=== PATIENT | male | born 1930 | race Caucasian/White ===

== ENCOUNTER 2018-09-03 21:52 | Emergency (ER) | payer OTHER ==
[2018-09-03] MEDS ORDERED: ONDANSETRON 4 MG/2 ML VIAL ONE (23:15)
[2018-09-03] MEDS ORDERED: MORPHINE 4 MG/ML SYR ONE (23:25)
--- NOTE | 2018-09-03 23:28 | ER ---
Nurse's Notes [facility] Name: Julian Plaza Age: 87 yrs Sex: Male : 1930 Arrival Date: 09/03/2018 Time: 22:00 Bed 4 Private MD: Diagnosis: Fractures distal right radius and ulna with displacements. Contusion head. S/P Fall Presentation: 09/03 22:01 Presenting complaint: EMS states: Walking with his cane and lost footing fell onto ea carpeted floor, hit face and right arm. Pt complaining of pain to face and deformity noted to right forearm. Denied LOC. Abrasion to face. Pt is currently on blood thinners. Transition of care: patient was not received from another setting of care. Onset of symptoms was September 03, 2018. Risk Assessment: Do you want to hurt yourself or someone else? Patient reports no desire to harm self or others. Initial Sepsis Screen: Does the patient meet any 2 criteria? No. Patient's initial sepsis screen is negative. Does the patient have a suspected source of infection? No. Patient's initial sepsis screen is negative. Care prior to arrival: 30 mg of Toradol given via 18 G to RAC. Splint to right Forearm. BGL 132. 22:01 Method Of Arrival: EMS: [facility] ea 22:01 Acuity: KYLE 3 ea 22:01 Mechanism of Injury: Fall from standing position. Trauma event details: Injury occurred ea in the [facility], Injury occurred: at home. Injury occurred: September 03, 2018 Injury occurred at: 21:10. Trauma Activation: Alert Physician: ED Physician; Name: ; Notified At: 22:00; Arrived At: 22:00 Physician: General Surgeon; Name: ; Notified At: 22:00; Arrived At: Physician: Radiology; Name: ; Notified At: 22:00; Arrived At: 22:05 Physician: Respiratory; Name: ; Notified At: 22:00; Arrived At: Physician: Lab; Name: ; Notified At: 22:00; Arrived At: Historical: - Allergies: 22:33 Sulfa (Sulfonamide Antibiotics); ea - Home Meds: 22:33 Metanx (algal oil) 3 mg-35 mg-2 mg -90.314 mg oral cap 2 capsul daily [Active]; Lmefol ea Yd-[id number]-algal 6 mg-600 mg- 2 mg-90.314 mg oral tab 2 cap daily [Active]; gabapentin 100 mg oral cap 1 caps 3 times per day for Neuropathic Pain [Active]; clopidogrel 75 mg oral tab 1 tab once daily [Active]; allopurinol 100 mg Oral tab 1 tab once daily [Active]; simvastatin 20 mg Oral tab 1 tab once daily [Active]; metoprolol tartrate 50 mg Oral tab 1 tab once daily [Active]; losartan 100 mg oral tab 1 tab once daily [Active]; - PMHx: 22:33 Hypertension; neuropathy; TIA; ea - PSHx: 22:33 Joint replacement; Tonsillectomy; Appendectomy; ea - Immunization history:: Adult Immunizations up to date, Last tetanus immunization: unknown. - Social history:: Smoking status: Patient/guardian denies using tobacco. - Ebola Screening: : No symptoms or risks identified at this time. Screenin:23 Abuse screen: Denies threats or abuse. Nutritional screening: No deficits noted. ea Tuberculosis screening: No symptoms or risk factors identified. Fall Risk IV access (20 points). Primary Survey: 22:08 A: Airway: patent. Breathing/Chest: Respiratory pattern: regular, Respiratory effort: ea spontaneous, unlabored, Breath sounds: clear, bilaterally. Chest inspection: symmetrical rise and fall of the chest. Circulation: Heart tones present. Skin color: pink, Skin temperature: warm. Disability Alert. 23:03 Reassessment Airway Airway Patent Breathing/Chest Respiratory pattern Regular ea Respiratory effort Spontaneous Unlabored Breath sounds Clear. Secondary Survey: 22:09 HEENT:. HEENT: Head Other abrasion and bruising noted to forehead. Gastrointestinal: ea Bowel sounds present in all quadrants. Musculoskeletal: Reports pain in right forearm Pain is 7 out of 10 on a pain scale. Injury Description: Head injury sustained to forehead is closed, did not have loss of consciousness, abrasion and bruising noted. Assessment: 22:12 General: Appears in no apparent distress. Behavior is calm, cooperative, appropriate ea for age. General: Behavior is. Pain: Complains of pain in right forearm and forehead Pain currently is 7 out of 10 on a pain scale. Quality of pain is described as aching, Pain began 30 min ago. Neuro: Level of Consciousness is awake, alert, obeys commands, Oriented to person, place, time, situation, Speech is normal, Facial symmetry appears normal, Pupils are PERRLA. Cardiovascular: Patient's skin is warm and dry. Respiratory: Airway is patent Respiratory effort is even, unlabored, Respiratory pattern is regular, symmetrical, Breath sounds are clear bilaterally. GI: No signs and/or symptoms were reported involving the gastrointestinal system. Bowel sounds present X 4 quads. Derm: Skin is pink, warm \T\ dry. Injury Description: Abrasion sustained to forehead is scabbed, was sustained 30-60 minutes ago. Bruise sustained to forehead is purple, was sustained 30-60 minutes ago. Deformity sustained to right wrist was sustained 30-60 minutes ago. 23:02 Reassessment: Patient and/or family updated on plan of care and expected duration. Pain ea level reassessed. Patient is alert, oriented x 3, equal unlabored respirations, skin warm/dry/pink. awaiting on CT results. 23:55 Reassessment: Patient and/or family updated on plan of care and expected duration. Pain ea level reassessed. Patient is alert, oriented x 3, equal unlabored respirations, skin warm/dry/pink. Discharge instructions given to patient and , both verbalized the understanding of instruction Patient states feeling better. Patient states symptoms have improved. Vital Signs: 22:05 BP 176 / 70; Pulse 63; Resp 18; Temp 98.6(O); Pulse Ox 98% on R/A; Weight 86.18 kg; ea Height 6 ft. 0 in. (182.88 cm); Pain 7/10; 23:03 BP 147 / 72; Pulse 57; Resp 16 S; Pulse Ox 99% ; Pain 5/10; ea 23:45 BP 150 / 68; Pulse 60; Resp 18; Temp 98(TE); Pulse Ox 97% on R/A; Pain 4/10; ea 22:05 Body Mass Index 25.77 (86.18 kg, 182.88 cm) ea [place] Coma Score: 22:01 Eye Response: spontaneous(4). Verbal Response: oriented(5). Motor Response: obeys ea commands(6). Total: 15. 23:45 Eye Response: spontaneous(4). Verbal Response: oriented(5). Motor Response: obeys ea commands(6). Total: 15. Trauma Score (Adult): 22:01 Eye Response: spontaneous(1); Verbal Response: oriented(1); Motor Response: obeys ea commands(2); Systolic BP: > 89 mm Hg(4); Respiratory Rate: 10 to 29 per min(4); Steve Score: 15; Trauma Score: 12 ED Course: 22:00 Patient arrived in ED. ea 22:01 Arm band placed on right wrist. Patient placed in an exam room, on a stretcher, on ea digital artist, on pulse oximetry. 22:05 Triage completed. ea 22:05 Patient maintains SpO2 saturation greater than 95% on room air. Thermoregulation: warm ea blanket given to patient. 22:07 Patient has correct armband on for positive identification. Bed in low position. Call ea light in reach. Side rails up X2. 22:09 Yony Reyes MD is Attending Physician. pkl 22:27 Wrist Right 3 View XRAY In Process Unspecified. EDMS 22:38 Gardenia Hunter, RN is Primary Nurse. ea 22:44 CT Head Brain wo Cont In Process Unspecified. EDMS 23:26 Shant Hughes MD is Referral Physician. pkl 23:26 Assist provider with reduction of right wrist using manipulation, Performed by Yony Reyes ea, MD Immobilized with Sugar Tong Splint Patient tolerated well. 23:34 X-ray completed. Portable x-ray completed in exam room. Patient tolerated procedure kw well. 23:35 Wrist Right 2 View In Process Unspecified. EDMS 23:50 IV discontinued, intact, bleeding controlled, No redness/swelling at site. Pressure ea dressing applied. Administered Medications: 23:20 Drug: morphine 2 mg Route: IVP; Site: left forearm; ea 23:37 Follow up: Response: No adverse reaction; Pain is decreased ea 23:20 Drug: Zofran 4 mg Route: IVP; Site: left forearm; ea 23:37 Follow up: Response: No adverse reaction; Marked relief of symptoms; Pain is decreased ea Intake: 23:36 PO: 0ml; Total: 0ml. ea Outcome: 23:28 Discharge ordered by . pkl 23:55 Discharged to home via wheelchair, with family. ea 23:55 Condition: improved 23:55 Discharge instructions given to patient, family, Instructed on discharge instructions, follow up and referral plans. medication usage, Demonstrated understanding of instructions, follow-up care, medications, Prescriptions given X 1. 23:55 Patient's length of stay was not longer than 2 hours. caroline 09/04 00:09 Patient left the ED. caroline Signatures: Dispatcher [employer] EDYony Cueto MD MD pkl Whitley, Kimberlee kw Antunez, Elena, RN RN caroline
--- NOTE | 2018-09-03 23:29 | EDPHYS ---
Physician Documentation [facility] Name: Julian Plaza Age: 87 yrs Sex: Male : 1930 Arrival Date: 09/03/2018 Time: 22:00 Bed 4 Private MD: ED Physician Yony Reyes HPI: 09/03 22:17 This 87 yrs old Male presents to ER via EMS with unknown complaint. pkl 22:17 Details of fall: The patient fell from an upright position. Onset: The symptoms/episode pkl began/occurred just prior to arrival, 1 hour(s) ago. Associated injuries: The patient sustained injury to the head, abrasion, right wrist, painful injury. Historical: - Allergies: 22:33 Sulfa (Sulfonamide Antibiotics); ea - Home Meds: 22:33 Metanx (algal oil) 3 mg-35 mg-2 mg -90.314 mg oral cap 2 capsul daily [Active]; Lmefol ea Zh-wkeojx-zwK33-algal 6 mg-600 mg- 2 mg-90.314 mg oral tab 2 cap daily [Active]; gabapentin 100 mg oral cap 1 caps 3 times per day for Neuropathic Pain [Active]; clopidogrel 75 mg oral tab 1 tab once daily [Active]; allopurinol 100 mg Oral tab 1 tab once daily [Active]; simvastatin 20 mg Oral tab 1 tab once daily [Active]; metoprolol tartrate 50 mg Oral tab 1 tab once daily [Active]; losartan 100 mg oral tab 1 tab once daily [Active]; - PMHx: 22:33 Hypertension; neuropathy; TIA; ea - PSHx: 22:33 Joint replacement; Tonsillectomy; Appendectomy; ea - Immunization history:: Adult Immunizations up to date, Last tetanus immunization: unknown. - Social history:: Smoking status: Patient/guardian denies using tobacco. - Ebola Screening: : No symptoms or risks identified at this time. ROS: 22:17 Eyes: Negative for injury, pain, redness, and discharge, ENT: Negative for injury, pkl pain, and discharge, Neck: Negative for injury, pain, and swelling, Cardiovascular: Negative for chest pain, palpitations, and edema, Respiratory: Negative for shortness of breath, cough, wheezing, and pleuritic chest pain, Abdomen/GI: Negative for abdominal pain, nausea, vomiting, diarrhea, and constipation, Back: Negative for injury and pain, : Negative for injury, bleeding, discharge, and swelling. 22:17 MS/extremity: Positive for pain, tenderness, of the right wrist. 22:17 Skin: Negative for rash. 22:17 Neuro: Negative for altered mental status, loss of consciousness. Exam: 22:17 Eyes: Pupils equal round and reactive to light, extra-ocular motions intact. Lids and pkl lashes normal. Conjunctiva and sclera are non-icteric and not injected. Cornea within normal limits. Periorbital areas with no swelling, redness, or edema. 22:17 Head/face: Noted is abrasion(s), that are mild, of the forehead, contusion. 22:17 ENT: Exam is negative for acute changes. 22:17 Neck: Exam negative for acute changes, obvious evidence of injury or deformity. 22:17 Chest/axilla: Exam negative for acute changes. 22:17 Cardiovascular: Rate: normal, Rhythm: regular. 22:17 Respiratory: the patient does not display signs of respiratory distress, Respirations: normal, Breath sounds: are clear throughout. 22:17 Abdomen/GI: Bowel sounds: normal, Palpation: abdomen is soft and non-tender, in all quadrants. 22:17 Back: Exam negative for acute changes. 22:17 : Exam negative for acute changes. 22:17 Musculoskeletal/extremity: Extremities: grossly normal except: noted in the right wrist: pain, tenderness. 22:17 Skin: Exam negative for rash. 22:17 Neuro: Orientation: appropriate for stated age, Mentation: is normal, Cranial nerves: grossly normal, Motor: is normal. Vital Signs: 22:05 BP 176 / 70; Pulse 63; Resp 18; Temp 98.6(O); Pulse Ox 98% on R/A; Weight 86.18 kg; ea Height 6 ft. 0 in. (182.88 cm); Pain 7/10; 23:03 BP 147 / 72; Pulse 57; Resp 16 S; Pulse Ox 99% ; Pain 5/10; ea 23:45 BP 150 / 68; Pulse 60; Resp 18; Temp 98(TE); Pulse Ox 97% on R/A; Pain 4/10; ea 22:05 Body Mass Index 25.77 (86.18 kg, 182.88 cm) ea Steve Coma Score: 22:01 Eye Response: spontaneous(4). Verbal Response: oriented(5). Motor Response: obeys ea commands(6). Total: 15. 23:45 Eye Response: spontaneous(4). Verbal Response: oriented(5). Motor Response: obeys ea commands(6). Total: 15. Trauma Score (Adult): 22:01 Eye Response: spontaneous(1); Verbal Response: oriented(1); Motor Response: obeys ea commands(2); Systolic BP: > 89 mm Hg(4); Respiratory Rate: 10 to 29 per min(4); [place] Score: 15; Trauma Score: 12 Procedures: 23:23 Splinting: Splint applied to right wrist using sling, sugar tong splint. applied by [facility] myself. post reduction film - reveals improved alignment, Examined by me, post splint application: neurovascular intact, 2+ distal pulses palpable, brisk capillary refill noted, Patient tolerated well. MDM: 22:09 Patient medically screened. pk 23:23 Data reviewed: vital signs, nurses notes, radiologic studies, plain films. [facility] 09/03 22:16 Order name: CT Head Brain wo Cont pkl 09/03 22:16 Order name: Wrist Right 3 View XRAY pkl 09/03 23:26 Order name: Wrist Right 2 View EDMS 09/03 23:01 Order name: Sugar Tong Forearm Splint; Complete Time: 23:26 ea Administered Medications: 23:20 Drug: morphine 2 mg Route: IVP; Site: left forearm; ea 23:37 Follow up: Response: No adverse reaction; Pain is decreased ea 23:20 Drug: Zofran 4 mg Route: IVP; Site: left forearm; ea 23:37 Follow up: Response: No adverse reaction; Marked relief of symptoms; Pain is decreased ea Disposition: 09/03/18 23:28 Discharged to Home. Impression: Fractures distal right radius and ulna with displacements. Contusion head. S/P Fall. - Condition is Stable. - Prescriptions for Ultram 50 mg Oral Tablet - take 1 tablet by ORAL route every 8 hours As needed; 30 tablet. - Medication Reconciliation Form, Thank You Letter, Antibiotic Education, Prescription Opioid Use form. - Follow up: Shant Hughes MD; When: 2 - 3 days; Reason: Re-evaluation by your physician. - Problem is new. - Symptoms have improved. Signatures: Dispatcher [employer] [facility] Yony Reyes MD MD pkGardenia Mendez RN RN caroline Corrections: (The following items were deleted from the chart) 23:25 23:24 Wrist Right 3 View+RAD.RAD.BRZ ordered. [facility] 09/04 00:09 09/03 23:28 09/03/2018 23:28 Discharged to Home. Impression: Fractures distal right ea radius and ulna with displacements. Contusion head. S/P Fall. Condition is Stable. Forms are Medication Reconciliation Form, Thank You Letter, Antibiotic Education, Prescription Opioid Use. Follow up: Shant Hughes; When: 2 - 3 days; Reason: Re-evaluation by your physician. Problem is new. Symptoms have improved. pkl
[2018-09-04 00:21] VITALS: BP 150/68; TEMP 98; O2SAT 97
--- NOTE | 2018-09-04 08:26 | RAD REPORT ---
EXAM DESCRIPTION: RAD - Wrist Right 3 View - 09/03/2018 10:27 pm CLINICAL HISTORY: Right wrist pain status post injury FINDINGS: Impacted moderately displaced fracture involves the distal radius. Mildly displaced fractu re involves the distal ulna No dislocation is seen. Bones are osteoporotic
--- NOTE | 2018-09-04 08:39 | RAD REPORT ---
EXAM DESCRIPTION: CT - Head Brain Wo Cont - 09/04/2018 1:33 am CLINICAL HISTORY: Head injury status post fall. Headache COMPARISON: 2014 TECHNIQUE: Computed axial tomography of the head was obtained. IV contrast was not requested.Prelim report was generated virtual radiologic and prior to dictation All CT scans are performed using dose optimization technique as appropriate and may include automated exposure control or mA/KV adjustment according to patient size. FINDINGS: Small right frontal scalp hematoma is seen without an underlying skull fracture. An intracranial bleed is not seen . The ventricles are normal in caliber. No extra-axial fluid collection is noted. Moderate low-density areas within periventricular, deep and subcortical white matter likely represent ischemic changes secondary to small vessel disease. Fluid within the sinuses/ mastoids is not seen. IMPRESSION: No acute intracranial abnormality is seen. If patient's symptoms persist MRI of the bra in would be recommended.
--- NOTE | 2018-09-04 08:39 | RAD REPORT ---
EXAM DESCRIPTION: RAD - Wrist Right 2 View - 09/03/2018 11:38 pm CLINICAL HISTORY: Radial fracture FINDINGS: Splint immobilizes previously described fractures of the distal radius and ulna in better alignment.
--- NOTE | 2018-09-04 13:56 | EKG ---
Test Date: 2018-09-03 Test Time: 21:59:08 [employer] Teacher: ARPITA MEASUREMENT RESULTS: Intervals: Rate: 59 FL: 218 QRSD: 140 QT: 482 QTc: 477 [place]: P: 74 FL: 218 QRS: 25 T: 36 INTERPRETIVE STATEMENTS: Sinus bradycardia with 1st degree AV block Right bundle branch block Abnormal ECG Compared to ECG 02/10/2011 08:17:16 First degree AV block now present Right bundle-branch block now present Sinus tachycardia no longer present Electronically Signed On 09-04-18 13:53:23 CDT by Freddy Joseph
== END 2018-09-04 00:09 | disposition home or self-care (01) ==
LOC: ER 21:52
PROC: 2W3CX1Z Immobilization of Right Lower Arm using Splint (ICD-10-PCS; principal; 2018-09-04)
DX: S52.501A Unspecified fracture of the lower end of right radius, initial encounter for closed fracture (principal); S52.201A Unspecified fracture of shaft of right ulna, initial encounter for closed fracture; I10 Essential (primary) hypertension; W01.0XXA Fall on same level from slipping, tripping and stumbling without subsequent striking against object, initial encounter; Y93.89 Activity, other specified; Y92.9 Unspecified place or not applicable
CPT/HCPCS: 29125; 70450; 73100; 73110; 93005; 96374; 96375; 99285; J2405